=== PATIENT | male | born 1950 | race Caucasian/White ===

== ENCOUNTER 2017-03-29 10:49 | Day surgery (SDC) | payer MEDICARE ==
[~2017-03-29 10:49] MED LIST: ASPIRIN BUFFER325 M1 PO; ASPIRIN325 M3 PO; BICARSIM80 MG PO; CLOPIDOGREL75 M1 PO; COREG3.125 M1 PO; COREG3.125 MG PO; CRESTOR10 MG PO; CRESTOR10 MG/TAB PO; CYCLOBENZAPRINE10 M1 PO; EQL FISH OIL 1,1 CA1 PO; FISH OIL 1,0001 EA10 PO; LASIX20 M1 PO; LASIX20 MG PO; LYRICA75 MG PO; METFORMIN HCL500 M2 PO; MILK OF MA400 MG/5 M PO; MULTI VITAMIN1 EAC1 PO; NEURONTIN300 M1 PO; NORCO 7.5/325 T1 TAB PO; PANTOPRAZOLE SO40 M3 PO; PLAVIX75 MG PO; PROTONIX40 MG PO; ROXICODONE5 M2 PO; SENNA-S TABLET1 EAC1 PO; ST. JOHN'S WOR150 MG PO; ULTRACET PO; ULTRAM50 M1 PO; ULTRAM50 MG PO; VITAMIN B PO; VITAMIN C1000 MG PO; VOLTAREN75 MG PO; XARELTO10 MG PO; ZESTRIL10 M2 PO; ZESTRIL10 M3 PO
[2017-03-29 11:41] LABS: BASO % 0.7 % (0-2); EOS % 1.5 % (0-7); EOSINOPHIL ABSOLUTE COUNT 0.1 tho/cmm (0.0-0.7); HCT-HEMATOCRIT 42.3 % (36.0-53.5); HGB-HEMOGLOBIN 14.2 gm/dl (13.5-17.0); IMMATURE GRANULOCYTES ABSOLUTE 0.01 tho/cmm (0-0.03); IMMATURE GRANULOCYTES PERCENT 0.2 % (0-0.3); LYMPH % 28.5 % (20-45); LYMPH ABSOLUTE COUNT 1.7 tho/cmm (0.8-4.5); MCH (MEAN CORPUSCULAR HGB) 28.3 pg (28.0-32.0); MCHC MEAN CORPUSCULAR HGB CONC 33.6 % (32.0-36.0); MCV (MEAN CELL VOLUME) 84.4 fl (82.0-96.0); MEAN PLATELET VOLUME 10.3 cmc (9.4-12.4); MONO % 10.1 % (0-12); MONOCYTE ABSOLUTE COUNT 0.6 tho/cmm (0.0-1.2); NEUTROPHIL ABSOLUTE COUNT 3.5 tho/cmm (1.6-8.0); NEUTROPHIL-AUTOMATED 3.5 tho/cmm (1.6-8.0); PLATELET COUNT 286 tho/cmm (150-450); RED BLOOD COUNT 5.01 mil/cmm (4.40-5.70); RED CELL DISTRIBUTION WIDTH 16.7 % (12.4-16.4); WHITE BLOOD COUNT 5.9 tho/cmm (4.0-10.0)
[2017-03-29] MEDS ORDERED: FISH OIL 11000 MG/CA PO (11:49)
[2017-03-29] MEDS ORDERED: GLUCOSAMINE CH1 EAC7 PO (11:50)
[2017-03-29] MEDS ORDERED: VITAMIN E400 UNI4 PO (11:50)
[2017-03-29 11:55] LABS: ANION GAP 12 mmol/L (0-20); BLOOD UREA NITROGEN 9 mg/dl (6-24); CALCIUM 8.9 mg/dl (8.5-10.5); CARBON DIOXIDE-VENOUS 30 mmol/L (22-32); CHLORIDE 100 mmol/l (96-110); CREATININE 0.72 mg/dl (0.60-1.30); GLUCOSE 121 mg/dL (70-110); POTASSIUM 4.4 mmol/L (3.7-5.1); SODIUM 138 mmol/L (135-145); eGFR VALUE FOR BLACK >90 mL/Min
--- NOTE | 2017-03-29 21:33 | NUR ---
VN ROUNDING-PATIENT LAYING IN BED COMFORTABLY AND STATES NO PAIN. TOLERATING DIET AND IS GETTING READY TO GET UP AND WALK. PATIENT IS PLANNING ON GOING HOME TOMORROW MORNING. NO FURTHER QUESTIONS OR CONCERNS AT THIS TIME
[2017-03-30] MEDS ORDERED: COLACE100 M1 PO (13:41)
[2017-03-30] MEDS ORDERED: NORCO 5-325 TA1 EACH PO (13:42)
== END 2017-03-30 16:50 ==
LOC: SRG 10:49 → SHSB 10:50 → ORW 13:13 → PACU 14:26 → SHSB 15:25 → 5WD 17:30
PROVIDERS: Anesthesiology
PROC: 0FT44ZZ Resection of Gallbladder, Percutaneous Endoscopic Approach (ICD-10-PCS; principal; 2017-03-29)
PROC: 0WQF0ZZ Repair Abdominal Wall, Open Approach (ICD-10-PCS; 2017-03-29)
PROC: 0JB60ZZ Excision of Chest Subcutaneous Tissue and Fascia, Open Approach (ICD-10-PCS; 2017-03-29)
DX: K81.1 Chronic cholecystitis (principal); K42.9 Umbilical hernia without obstruction or gangrene; K66.0 Peritoneal adhesions (postprocedural) (postinfection); D13.5 Benign neoplasm of extrahepatic bile ducts; D17.1 Benign lipomatous neoplasm of skin and subcutaneous tissue of trunk; I25.2 Old myocardial infarction; I25.10 Atherosclerotic heart disease of native coronary artery without angina pectoris; I10 Essential (primary) hypertension; M19.90 Unspecified osteoarthritis, unspecified site; E11.9 Type 2 diabetes mellitus without complications; K21.9 Gastro-esophageal reflux disease without esophagitis; E78.5 Hyperlipidemia, unspecified; Z79.02 Long term (current) use of antithrombotics/antiplatelets; Z79.82 Long term (current) use of aspirin; Z79.84 Long term (current) use of oral hypoglycemic drugs; Z79.899 Other long term (current) drug therapy; Z91.013 Allergy to seafood; Z91.041 Radiographic dye allergy status; Z87.891 Personal history of nicotine dependence; Z90.49 Acquired absence of other specified parts of digestive tract; Z90.89 Acquired absence of other organs; Z98.890 Other specified postprocedural states
CPT/HCPCS: J0690; J3010